=== PATIENT | male | born 1950 | race Caucasian/White ===

== ENCOUNTER → 2017-03-24 | Outpatient (CLI) | payer BC ==
--- NOTE | 2017-03-24 14:13 | RAD ---
Indication pain and swelling. Grayscale color Doppler and spectral imaging was performed. Examination was targeted to the veins of the right lower extremity. The common femoral, femoral and popliteal vessels demonstrate normal flow compressibility and augmentation. No thrombus is seen. Visualized calf veins appeared unremarkable. IMPRESSION: Negative right lower extremity venous analysis for DVT
== END | disposition home or self-care (01) ==
LOC: US 13:21
PROVIDERS: ATTEND Nurse Practitioner Adult Health
DX: M79.604 Pain in right leg (principal); M79.89 Other specified soft tissue disorders
CPT/HCPCS: 93971

== ENCOUNTER → 2018-07-23 | Outpatient (CLI) | payer BC ==
[~2018-07-23] MED LIST: ASPI-630 PO; COLE1TAB2 PO; HYDR-2766 PO; IOHEXOL 180 MG/ML 10 ML VIAL. ONE; LIDOCAINE 2% PF 2ML VIAL. ONE; LYSI500T PO; RAMI5CAP50 PO; methylPREDNISolone ACETATE 40 MG/ML VIAL. ONE; methylPREDNISolone ACETATE 80 MG/ML VIAL. ONE
--- NOTE | 2018-07-24 01:43 | PAIN ---
DATE OF SERVICE: 07/23/2018 INITIAL CONSULTATION FOR PAIN CLINIC CHIEF COMPLAINT: Low back and left lower extremity pain. HISTORY OF PRESENT ILLNESS: This is a 68-year-old male who presents with history of pain in the low back and left leg for about 2 months, increasing with activity. No specific injury or action he is aware of, but it has been getting worse daily with walking, standing and changing positions, especially [id number] position, but it does not awaken him from sleep at night. The patient reports it is in the left leg, mostly in the lateral anterior aspect of the thigh, medial thigh, medial knee and to the posterior leg to some extent and mostly anterior thigh and medial thigh. The patient reports it is sharp, changes during the day, intermittent in intensity, tingling with numbness and radiation, burning and aching sensation as well in the low back too. The patient reports he has been doing some stretching exercises, has had no formal physical therapies recently, but did have some in the past and is doing some stretching and strengthening exercises from that. The patient reports it does not affect his bowel or bladder control or his ability to walk significantly. He feels better sometimes with changing positions as far as standing as opposed to sitting. He has a desk that changes configuration to allow him to stand and work also. The patient reports no loss of motor function, but some increased fatigability with walking in the left leg compared to the right. The patient did have an MRI scan of the lumbar spine showing left post hemilaminectomy changes in L4-L5 and degenerative disk disease throughout the lumbar spine, with some very mild central spinal canal stenosis at L3-L4, with a moderate generalized disk bulge at that level. Also, L2-L3 shows eccentric to the left disk bulge as well. The L3-L4 shows some very mild central spinal canal stenosis. The patient rates his disability rate from 0-10, 10 being the worst; it is a 4 with family and home responsibilities, recreation, occupation and social activity; 0 with sexual behavior; 2 with self-care and 1 with life-support activities. PAST MEDICAL HISTORY: Significant for hypertension, arthritis and prostate cancer. PAST SURGICAL HISTORY: Previous surgeries include lumbar laminectomy in 1973 and also in 2008, prostate surgery in 2003, left knee surgery in 2011 and 2012 and hip replacement and left shoulder replacement in 2014 as well. CURRENT MEDICATIONS: Include lysine, daily baby aspirin, ramipril, hydrocodone and colestipol. ALLERGIES: THE PATIENT IS ALLERGIC TO AMOXICILLIN AND CODEINE. FAMILY HISTORY: Significant for no major medical problems or conditions he is aware of. SOCIAL HISTORY: The patient does not drink alcohol, does not smoke and does not use any illegal, illicit or recreational drugs. He is , lives with his spouse and lives locally in [place], [place]. He works for a [employer], mainly at a desk job. REVIEW OF SYSTEMS: The patient's review of systems is positive for those items mentioned in the history of present illness. All systems reviewed and otherwise negative. It is complete, full and well documented on the patient's chart. PHYSICAL EXAMINATION: VITAL SIGNS: The patient's blood pressure is 125/65, pulse 72, respirations 18 and temperature is 98.6 degrees Fahrenheit. Height 5 feet 10 inches and weight is 208 pounds. GENERAL: The patient is awake, alert, oriented, appropriate, very pleasant demeanor. HEENT EXAMINATION: Shows normocephalic, atraumatic. Extraocular movements are intact and symmetrical. Oral cavity, mucous membranes are moist and pink. Dentition is intact. NECK: Shows anterior throat supple, without palpable lymphadenopathy noted. Swallow reflex is symmetrical. CHEST: Shows normal on inspection. Breath sounds are clear to auscultation bilaterally. HEART: Shows S1, S2 clear. No murmurs auscultated. ABDOMEN: Soft, nontender and nondistended. No palpable organomegaly is noted. No rebound or guarding demonstrated. BACK: Shows spine grossly in the midline. Normal-appearing thoracic kyphosis and lumbar lordotic curvature. Well-healed surgical scars noted in the lumbar distribution. Lumbar paraspinous muscle shows symmetrical on inspection. On palpation, it shows some moderate tenderness bilaterally, but only diffusely, without radiation. The patient has good rotational motion of the lumbar spine, both laterally as well as extension and flexion. No tenderness over the spinous processes, sacrum or sacroiliac regions. EXTREMITIES: Lower extremities show deep tendon reflexes at 2+ in the patellar and 1+ tendo calcaneus tendons. Motor exam is strong with 5/5 dorsiflexion, extension, quadriceps and hamstring flexion and symmetrical. Peripheral pulses are 1+ posterior tibia. No peripheral edema is noted. Straight leg raise noted to be negative for reproduction of any radicular symptoms bilaterally. Gaenslen's and Chris's maneuvers are negative bilaterally as well. The patient is able to stand, stand on his toes without difficulty or loss of balance, walks with a normal-appearing gait and does not appear to favor the right or left lower extremity, again not using any assistive device such as canes or walkers to ambulate. SKIN: Shows warm and dry. Good turgor. No edema. No sores, rashes or bruising. IMPRESSION: 1. This is a 68-year-old male with approximate 2-month history of increasing pain in the low back, left lower extremity in a radicular pattern. 2. MRI scan of the lumbar spine as noted. 3. Arthritis. 4. Hypertension. 5. History of prostate cancer. PLAN: Options were discussed with the patient including conservative medical management, physical therapy and interventional techniques. He would like to proceed with interventional techniques. We discussed a lumbar epidural steroid injection using description as well as anatomical models to describe the procedure. Risks were then discussed including, but not limited to bleeding, infection, possibility of epidural hematoma and subsequent neurological compromise, dural puncture, headaches, spinal cord and/or nerve damage, side effects of steroid medication and poor results regarding pain control. The patient understands and wishes to proceed. The patient will return to the clinic in approximately 2 weeks for followup. He was counseled on his return appointment, activity level and side effects to be aware of. DIAGNOSES: Lumbar radiculopathy with lumbar degenerative disk disease, lumbar spinal stenosis and post-lumbar laminectomy syndrome. PROCEDURE: Lumbar epidural steroid injection in a translaminar approach at the L3-L4 level using C-arm fluoroscopic guidance under sterile prep and drape using local anesthetic. MEDICATION INJECTED: A total of 120 mg Depo-Medrol plus 10 mL of preservative-free normal saline and 2 mL of Isovue for contrast. CONDITION AT DISCHARGE: Stable. The patient tolerated procedure well, had no complications. JOSEPH MAHONEY MD DR: JOEL/marley JOB#: [id number] / [id number] TANK Odell MD
== END | disposition home or self-care (01) ==
LOC: PNCL 07:52
PROVIDERS: ATTEND Anesthesiology
DX: M51.16 Intervertebral disc disorders with radiculopathy, lumbar region (principal); M48.061 Spinal stenosis, lumbar region without neurogenic claudication; M96.1 Postlaminectomy syndrome, not elsewhere classified; I10 Essential (primary) hypertension; M19.90 Unspecified osteoarthritis, unspecified site; Z85.46 Personal history of malignant neoplasm of prostate; Z96.612 Presence of left artificial shoulder joint; Z96.642 Presence of left artificial hip joint; Z98.890 Other specified postprocedural states; Z79.82 Long term (current) use of aspirin; Z79.899 Other long term (current) drug therapy; Z88.1 Allergy status to other antibiotic agents; Z88.5 Allergy status to narcotic agent
CPT/HCPCS: 62323; J1030; J1040; J2001; Q9965

== ENCOUNTER → 2018-08-06 | Outpatient (CLI) | payer BC ==
[~2018-08-06] MED LIST changes: +LIDOCAINE 1% PF 2 ML VIAL. ONE; -LIDOCAINE 2% PF 2ML VIAL. ONE
--- NOTE | 2018-08-06 19:11 | PAIN ---
DATE OF SERVICE: 08/06/2018 DIAGNOSES: Lumbar radiculopathy with lumbar degenerative disk disease, lumbar spinal stenosis with post-lumbar laminectomy syndrome. HISTORY OF PRESENT ILLNESS: The patient is a 68-year-old male who returns for followup status post initial evaluation and previous lumbar epidural steroid injection x 1. The patient reports about 70-80% improvement for the first 2-3 weeks, but the pain is returning now over the past week in the low back and more in the left leg, mostly anterior thigh, medial thigh, also across the low back and hip to some extent. The patient reports he was increasing activity with greater ease and comfort, walking greater distances, is doing better at work as well with standing and sitting positions and also increasing activity recreationally. The patient reports his pain is a 4 on a scale of 10, now it is worse, 3 on average, 1 its least and is a 1 today. The patient reports tingling, dull, on and off in intensity, again radiating to the left leg as it was previously, but much improved. The patient reports he is sleeping well at night. No new motor or sensory deficits, no new bowel or bladder incontinence or other complaints. Describes it as a dull pain and sometimes has tingling sensation in the left leg itself. PHYSICAL EXAMINATION: VITAL SIGNS: The patient's blood pressure 112/68, pulse 69, respirations 18, temperature is 98.3 degrees Fahrenheit, height is 5 feet 11 inches, weight is 204 pounds. GENERAL: The patient is awake, alert, oriented, appropriate, very pleasant demeanor. HEENT: Head is normocephalic, atraumatic. Extraocular muscles are intact and symmetrical. Oral cavity: Mucous membranes moist and pink. Dentition is intact. NECK: Shows anterior throat supple without palpable lymphadenopathy noted. Swallow reflex is symmetrical. CHEST: Shows normal with inspection. Breath sounds are clear to auscultation bilaterally. HEART: Shows S1, S2 clear. No murmurs auscultated. ABDOMEN: Soft, nontender, nondistended. No palpable organomegaly is noted. No rebound or guarding demonstrated. BACK: Shows spine grossly in the midline. Normal appearing thoracic kyphosis and minor flattening of lumbar lordotic curvature, well-healed surgical scar in the lumbar distribution. Lumbar paraspinous muscle shows symmetrical on inspection, but the patient has a very mild tenderness in the middle and lower distribution of paraspinous muscles, but only diffusely without radiation, without trigger points. No tenderness over the sacrum or sacroiliac regions. The patient has good rotational motion of lumbar spine, both laterally as well as extension and flexion without difficulty. No tenderness over the sacrum and sacroiliac regions or over the spinous processes. EXTREMITIES: Lower extremities show deep tendon reflexes 2+ in the patellar and tendo calcaneus tendons are 1+. Motor exam is strong with 5/5 dorsiflexion, extension, quadriceps and hamstring flexion and symmetrical. Peripheral pulses are 1+ posterior tibia. No peripheral edema is noted bilaterally. Options were discussed with the patient. The patient's old chart was reviewed as his current medication regimen updated. Current review of systems updated today as well. We will proceed with a second in a series of lumbar epidural steroid injection today with fluoroscopic guidance. Risks were again discussed including, but not limited to bleeding, infection, possibility of epidural hematoma, subsequent neurologic compromise, dural puncture, headaches, spinal cord and/or nerve damage, side effects of steroid medication and poor results regarding pain control. The patient understands and wished to proceed. The patient to return to clinic in approximately 2 weeks for followup, was counseled on return appointment, activity level and side effects to be aware of. DIAGNOSIS: Lumbar radiculopathy with lumbar degenerative disk disease, lumbar spinal stenosis and post-lumbar laminectomy syndrome. PROCEDURE: Lumbar epidural steroid injection, translaminar approach at L3-L4 level using C-arm fluoroscopic guidance under sterile prep and drape using local anesthetic. MEDICATION INJECTED: A total of 120 mg Depo-Medrol plus 10 mL of preservative-free normal saline and 2 mL of Isovue for contrast. CONDITION AT DISCHARGE: Stable. The patient tolerated the procedure well, had no complications. JOSEPH MAHONEY MD DR: JOEL/marley JOB#: [id number] / [id number]
== END | disposition home or self-care (01) ==
LOC: PNCL 07:58
PROVIDERS: ATTEND Anesthesiology
DX: M51.16 Intervertebral disc disorders with radiculopathy, lumbar region (principal); M48.061 Spinal stenosis, lumbar region without neurogenic claudication; M96.1 Postlaminectomy syndrome, not elsewhere classified; Z88.1 Allergy status to other antibiotic agents; Z88.5 Allergy status to narcotic agent
CPT/HCPCS: 62323; J1030; J1040; Q9965